=== PATIENT | male | born 1990 | race African-American/Black ===

== ENCOUNTER 2019-05-10 16:20 | Emergency (ER) | payer SELFPAY ==
[~2019-05-10] VITALS: Ht 182.9 cm; Wt 65.8 kg
[2019-05-10 16:25] VITALS: Ht 182.9 cm; Wt 65.8 kg
[2019-05-10 16:58] LABS: BASOPHIL % 0.4 % (0-2); PLATELET COUNT 202 x10^3mcL (130-400)
[2019-05-10 17:15] LABS: CALCIUM 7.5 mg/dL (8.5-10.1); CARBON DIOXIDE 27.4 mmol/L (21-32); CHLORIDE SERUM 106 mmol/L (98-107); CREATININE SERUM 0.7 mg/dL (0.7-1.3); GFR1 > 60 mL/min; GLUCOSE SERUM 79 mg/dL (74-106); POTASSIUM SERUM 3.2 mmol/L (3.5-5.1); SODIUM SERUM 140 mmol/L (136-145)
[2019-05-10 17:20] LABS: ALKALINE PHOSPHATASE 48 U/L (46-116); ALT/SGPT 34 U/L (16-63); AST/SGOT 27 U/L (15-37); BILIRUBIN TOTAL 0.6 mg/dL (0.20-1.00); T4(THYROXINE) 6.7 ug/dL (4.7-13.3)
[2019-05-10 17:22] LABS: ALBUMIN 3.1 g/dL (3.4-5.0); TOTAL PROTEIN, SERUM 6.1 g/dL (6.4-8.2)
[2019-05-10 20:27] LABS: AMPHETAMINE QUAL UR POSITIVE (See below)
[2019-05-11 03:12] VITALS: BP 130/60
== END 2019-05-11 03:12 | disposition home or self-care (01) ==
LOC: ED 16:20
PROVIDERS: Emergency Medicine
DX: F19.10 Other psychoactive substance abuse, uncomplicated (principal)
CPT/HCPCS: 36415; G0480; J7030